=== PATIENT | male | born 1970 | race Caucasian/White ===

== ENCOUNTER 2018-02-04 18:16 | Emergency (ER) | payer OTHER ==
[2018-02-04 18:36] VITALS: BP 123/96
--- NOTE | 2018-02-04 20:21 | UC ---
Upper Extremity HPI - HPI Summary HPI Summary: 48 year old comes in to clinic with a complaint of right wrist pain. He had a hyperextension injury 3 days ago. The worst area of pain is at the distal radius and ulna in between the 2 of them anatomically over the lunate. With abduction and abduction of her wrist the pain is minimal with flexion and extension of the wrist the pain is worse. Ibuprofen helps some. Minimal swelling. No decreased range of motion of the fingers. - History of Current Complaint Chief Complaint: UCUpperExtremity Stated Complaint: RIGHT WRIST INJURY Time Seen by Provider: 02/04/18 20:01 Pain Intensity: 2 - Allergies/Home Medications Allergies/Adverse Reactions: Allergies Allergy/AdvReac Type Severity Reaction Status Date / Time gadobenic acid AdvReac Nausea Verified 08/19/17 09:31 [From Multihance] PMH/Surg Hx/FS Hx/Imm Hx - Surgical History Surgical History: Yes Surgery Procedure, Year, and Place: cervical x 2 [facility] 2011. APPENDIX AGE 8 - Family History Known Family History: Positive: Diabetes Negative: Cardiac Disease - Social History Alcohol Use: Weekly Substance Use Type: None Smoking Status (MU): Former Smoker Length of Time of Smoking/Using Tobacco: for approx 10 yrs When Did the Patient Quit Smoking/Using Tobacco: 2003 Review of Systems Constitutional: Negative Skin: Negative Eyes: Negative ENT: Negative Respiratory: Negative Cardiovascular: Negative Motor: Other - Pain with range of motion of the right wrist Neurovascular: Negative Musculoskeletal: Other: - See history present illness Psychological: Negative Is Patient Immunocompromised?: No All Other Systems Reviewed And Are Negative: Yes Physical Exam Triage Information Reviewed: Yes Appearance: Well-Appearing, No Pain Distress, Well-Nourished Vital Signs: Initial Vital Signs Temp 98.2 F 02/04/18 18:27 Pulse 58 02/04/18 18:27 Resp 16 02/04/18 18:27 BP 123/96 02/04/18 18:27 Pulse Ox 98 02/04/18 18:27 Vital Signs Reviewed: Yes Eye Exam: Normal Neck exam: Normal Neck: Positive: Supple Respiratory: Positive: No respiratory distress Musculoskeletal: Positive: Other: - Right wrist is tender on the dorsum in between the distal radius and ulna and over the lunate bone. There is mild swelling at this point. Fingers and wrist have full range of motion show sensation deficit strength is 5 out of 5. Normal capillary refill normal pulses. Neurological Exam: Normal Neurological: Positive: Alert Psychological Exam: Normal Skin Exam: Normal Upper Extremity Course/Dx - Differential Dx/Diagnosis Provider Diagnoses: RIGHT WRIST SPRAIN Discharge - Sign-Out/Discharge Documenting (check all that apply): Patient Departure All imaging exams completed and their final reports reviewed: No - Discharge Plan Condition: Stable Disposition: HOME Patient Education Materials: Wrist Sprain (ED) Referrals: Una FRANK,Dima Boyd [Primary Care Provider] - Quyen Ramirez MD [Medical Doctor] - [facility] [place] [facility] [Outside] Additional Instructions: THE RADIOLOGIST WILL READ YOUR WRIST X-RAY TOMORROW IN THE MORNING. IF WE DO NOT CALL YOU, CALL IN THE AFTERNOON TO GET THE RADIOLOGIST READING. FOLLOW UP WITH ORTHOPEDICS IF THE RADIOLOGIST SEES A FRACTURE OR IF YOUR WRIST PAIN DOES NOT IMPROVE OR WORSENS. GET RECHECKED FOR ANY WORSENING OF YOUR CONDITION OR QUESTIONS OR CONCERNS. - Billing Disposition and Condition Condition: STABLE Disposition: Home - Attestation Statements Document Initiated by Scribe: No
--- NOTE | 2018-02-05 07:12 | RAD ---
INDICATION: Right wrist injury. TECHNIQUE: 3 views of the right wrist were obtained. FINDINGS: There is soft tissue swelling dorsal to the carpal bones. The bones are normal alignment. No fracture is seen. Joint spaces appear maintained. IMPRESSION: NO EVIDENCE FOR FRACTURE. IF THE PATIENT'S SYMPTOMS PERSIST RECOMMEND FOLLOW-UP IMAGING. R0
--- NOTE | 2018-02-05 13:02 | UC ---
- Progress Note Progress Note: Radiologist read the x-ray of the wrist from February 05, 2018 as no fracture. I called the patient and spoke to him telling him the results of the radiologist reading. Discharge - Sign-Out/Discharge Documenting (check all that apply): Patient Departure All imaging exams completed and their final reports reviewed: Yes - Discharge Plan Condition: Stable Disposition: HOME Patient Education Materials: Wrist Sprain (ED) Referrals: [facility] [place] [facility] [Outside] Una FRANK,Dima Boyd [Primary Care Provider] - Quyen Ramirez MD [Medical Doctor] - Additional Instructions: THE RADIOLOGIST WILL READ YOUR WRIST X-RAY TOMORROW IN THE MORNING. IF WE DO NOT CALL YOU, CALL IN THE AFTERNOON TO GET THE RADIOLOGIST READING. FOLLOW UP WITH ORTHOPEDICS IF THE RADIOLOGIST SEES A FRACTURE OR IF YOUR WRIST PAIN DOES NOT IMPROVE OR WORSENS. GET RECHECKED FOR ANY WORSENING OF YOUR CONDITION OR QUESTIONS OR CONCERNS. - Billing Disposition and Condition Condition: STABLE Disposition: Home
== END 2018-02-04 20:28 | disposition home or self-care (01) ==
LOC: UCCORT 18:16
DX: S63.501A Unspecified sprain of right wrist, initial encounter (principal); X58.XXXA Exposure to other specified factors, initial encounter; Y92.9 Unspecified place or not applicable; Z87.891 Personal history of nicotine dependence; Z91.041 Radiographic dye allergy status
CPT/HCPCS: 99212; G0463